=== PATIENT | female | born 1940 | race Hispanic/Latino ===

== ENCOUNTER 2020-10-07 11:13 | Outpatient (CLI) | payer OTHER | END 2020-10-07 11:14 | disposition home or self-care (01) | LOC: BICCT 11:13 | PROVIDERS: ATTEND Psychiatry & Neurology Neurology | DX: I61.4 Nontraumatic intracerebral hemorrhage in cerebellum (principal) | CPT/HCPCS: 70450 ==

== ENCOUNTER 2020-11-16 16:14 | Outpatient (CLI) | payer OTHER ==
[2020-11-17 11:14] LABS: SARS-CoV-2 PCR by NAA Not Detected (NotDetected)
== END 2020-11-16 16:15 | disposition home or self-care (01) ==
LOC: LABBT 16:14
PROVIDERS: ATTEND Psychiatry & Neurology Neurology
DX: Z01.812 Encounter for preprocedural laboratory examination (principal); I61.4 Nontraumatic intracerebral hemorrhage in cerebellum; Z20.822 Contact with and (suspected) exposure to COVID-19
CPT/HCPCS: U0003; U0005

== ENCOUNTER 2020-11-18 10:15 | Outpatient (CLI) | payer OTHER | END 2020-11-18 10:16 | disposition home or self-care (01) | PROVIDERS: ATTEND Psychiatry & Neurology Neurology | DX: I69.391 Dysphagia following cerebral infarction (principal); R13.12 Dysphagia, oropharyngeal phase; R63.3 Feeding difficulties | CPT/HCPCS: 74230 ==